=== PATIENT | female | born 1995 | race African-American/Black ===

== ENCOUNTER 2017-04-18 22:33 | Emergency (ER) | payer MEDICAID ==
[~2017-04-18] VITALS: Ht 170.2 cm; Wt 164.0 kg
[2017-04-18] MEDS ORDERED: KETOROLAC 60MG/2ML VIAL IM ONE (23:45)
[2017-04-18 23:55] VITALS: BP 116/77
== END 2017-04-19 00:15 | disposition home or self-care (01) ==
LOC: ER 22:33
DX: M25.561 Pain in right knee (principal); M54.5 Low back pain; W01.0XXA Fall on same level from slipping, tripping and stumbling without subsequent striking against object, initial encounter; Y93.89 Activity, other specified; Y92.241 Library as the place of occurrence of the external cause
CPT/HCPCS: 81025; 96372; 99283; J1885; L1830

== ENCOUNTER 2018-10-25 12:10 | Emergency (ER) | payer MEDICAID ==
[~2018-10-25] VITALS: Ht 165.1 cm; Wt 137.0 kg
[2018-10-25] MEDS ORDERED: IBUPROFEN 600MG TABLET PO ONE (13:15)
[2018-10-25 13:27] VITALS: BP 125/68
== END 2018-10-25 14:01 | disposition home or self-care (01) ==
LOC: ER 12:10
DX: J01.90 Acute sinusitis, unspecified (principal)
CPT/HCPCS: 81025; 99283

== ENCOUNTER 2019-07-02 10:47 | Emergency (ER) | payer MEDICAID ==
[~2019-07-02] VITALS: Ht 170.2 cm; Wt 113.0 kg
[2019-07-02 11:05] VITALS: BP 139/91
[2019-07-02] MEDS ORDERED: KETOROLAC 30MG/ML VIAL IM ONE (12:30)
== END 2019-07-02 13:11 | disposition home or self-care (01) ==
LOC: ER 11:24
DX: L02.413 Cutaneous abscess of right upper limb (principal)
CPT/HCPCS: 96372; 99283; J1885

== ENCOUNTER 2025-03-24 23:59 | Inpatient (IN) | payer MEDICAID, OTHER ==
[~2025-03-24] VITALS: Ht 170.2 cm; Wt 196.0 kg
[2025-03-25 01:06] LABS: BASOPHILS % 1.2 % (0.0-2.0); EOSINOPHILS % 0.8 % (0.0-5.0); HEMATOCRIT. 34.9 % (36.0-48.0); HEMOGLOBIN. 11.5 g/dL (12.0-16.0); LYMPHOCYTES % 34.1 % (20.0-50.0); MEAN PLATELET VOLUME 8.4 fl (7.4-10.4); MONOCYTES % 5.0 % (2.0-8.0); NEUTROPHILS % 58.9 % (40.0-76.0); PLATELET 304 x1000/uL (130-400); RED BLOOD CELL COUNT 4.15 mill/uL (4.2-5.4); RED CELL DISTRIBUTION WIDTH 16.4 % (11.6-14.6)
[2025-03-25 01:20] LABS: CREATININE 0.9 mg/dL (0.6-1.0); TROPONIN I HIGH SENSITIVITY < 4 ng/L (3.0-34); UREA NITROGEN BLOOD 7 mg/dL (9-23)
[2025-03-25 01:21] LABS: ASPARTATE AMINOTRANSFERASE 20 IU/L (<34)
[2025-03-25 01:22] LABS: BILIRUBIN DIRECT 0.1 mg/dL (<=3.0); BILIRUBIN TOTAL 0.4 mg/dL (0.1-1.0); PROTEIN TOTAL 7.8 g/dL (6.0-8.3)
[2025-03-25] MEDS: MORPHINE SULFATE 4 MG/ML INJ (FOR IV/IM USE) IV ONE (01:56)
[2025-03-25] MEDS: ONDANSETRON HCL 4MG/2ML INJ IV ONE (01:56)
[2025-03-25] MEDS: SODIUM CHLORIDE 0.9% 1,000 ML IV ONE (01:57)
[2025-03-25 02:12] LABS: HCG SCREEN NEGATIVE
[2025-03-25] MEDS: IOHEXOL-350 100 ML BOTTLE ONE (05:18)
[2025-03-25] MEDS ORDERED: CLONIDINE 0.1MG TABLET PO PRN (08:30)
[2025-03-25] MEDS ORDERED: MAGNESIUM/ALUMINUM HYDROXIDE/SIMETHICONE 30ML UDC PO PRN (08:30)
[2025-03-25] MEDS ORDERED: GUAIFENESIN 200MG/10ML SUGAR FREE UDC PO PRN (08:30)
[2025-03-25] MEDS ORDERED: ACETAMINOPHEN 325MG TABLET PO PRN (08:30)
[2025-03-25] MEDS ORDERED: DOCUSATE SODIUM 100MG CAPSULE PO PRN (08:30)
[2025-03-25] MEDS ORDERED: ALBU18HF2 IH (08:42)
[2025-03-25] MEDS ORDERED: TOPI-252 PO (08:45)
[2025-03-25 09:01] VITALS: BP 121/66; PULSE 99; RESP 20; TEMP 36.5848
[2025-03-25 09:36] LABS: PHOSPHORUS 2.9 mg/dL (2.5-4.9)
[2025-03-25] MEDS ORDERED: NITROGLYCERIN 0.4MG TABLET SL SL PRN (09:45)
[2025-03-25] MEDS: ONDANSETRON HCL 4MG/2ML INJ IV PRN (11:07)
[2025-03-25] MEDS: ENOXAPARIN 40MG/0.4ML SYR SUBCUT SCH (11:07)
[2025-03-25 12:00] VITALS: BP 125/75; PULSE 71; RESP 20; TEMP 36.7; O2SAT 100
[2025-03-25] MEDS ORDERED: DEXTROSE 50% WATER 50ML SYRINGE IV PRN (12:30)
[2025-03-25] MEDS: INSULIN LISPRO 100 UNITS/ML SUBCUT SCH (12:40)
[2025-03-25 13:31] VITALS: PULSE 73; RESP 18; O2SAT 99
[2025-03-25] MEDS: IPRATROPIUM/ALBUTEROL 0.5-3(2.5)MG/3ML NEB HHN PRN (13:34)
[2025-03-25] MEDS: MAGNESIUM OXIDE 400MG TABLET PO SCH (14:09)
[2025-03-25 16:00] VITALS: BP 120/67; PULSE 74; RESP 20; TEMP 36.6; O2SAT 100
[2025-03-25] MEDS: BLOOD SUGAR DIAGNOSTIC STRIP TEST SCH (16:54)
[2025-03-25] MEDS: FERROUS SULFATE 325MG TABLET PO SCH (16:55)
[2025-03-25] MEDS: ASCORBIC ACID 500 MG TABLET PO SCH (16:55)
[2025-03-25 17:12] LABS: TROPONIN I HIGH SENSITIVITY < 4 ng/L (3.0-34)
[2025-03-25 17:51] LABS: CLARITY URINE CLEAR (CLEAR); COLOR URINE YELLOW (YELLOW); GLUCOSE URINE NEGATIVE (NEGATIVE); KETONES URINE NEGATIVE (NEGATIVE); LEUKOCYTE ESTERASE URINE NEGATIVE (NEGATIVE); NITRITE URINE NEGATIVE (NEGATIVE); OCCULT BLOOD URINE NEGATIVE (NEGATIVE); PH URINE 6.0 (4.5-8.0); PROTEIN URINE NEGATIVE (NEGATIVE); SPECIFIC GRAVITY URINE 1.045 (1.005-1.030); UROBILINOGEN URINE 1.0 E.U./dL (0.2-1.0)
[2025-03-25 18:16] LABS: *AMPHETAMINES SCREEN URINE NEGATIVE (NEGATIVE); *BARBITURATES SCREEN URINE NEGATIVE (NEGATIVE); *BENZODIAZEPINES SCREEN URINE NEGATIVE (NEGATIVE); *COCAINE SCREEN URINE NEGATIVE (NEGATIVE); CANNABINOID URINE SCREEN PRESUMPTIVE POSITIVE (NEGATIVE); ECSTASY MDMA SCREEN URINE NEGATIVE (NEGATIVE); METHADONE URINE SCREEN NEGATIVE (NEGATIVE); OPIATES URINE SCREEN NEGATIVE (NEGATIVE); PHENCYCLIDINE URINE SCREEN NEGATIVE (NEGATIVE)
[2025-03-25] MEDS: ACETAMINOPHEN 325MG TABLET PO PRN (19:22)
[2025-03-25 20:00] VITALS: BP 130/74; PULSE 82; RESP 22; TEMP 36.9; O2SAT 100
[2025-03-25] MEDS: FAMOTIDINE 20MG TABLET PO SCH (21:06)
[2025-03-25 23:33] LABS: TROPONIN I HIGH SENSITIVITY < 4 ng/L (3.0-34)
[2025-03-26] VITALS: BP 124/68; PULSE 76; RESP 20; TEMP 36.4; O2SAT 100
[2025-03-26 04:00] VITALS: BP 120/70; PULSE 80; RESP 18; TEMP 36.3; O2SAT 100
[2025-03-26 06:56] LABS: BASOPHILS % 0.7 % (0.0-2.0); EOSINOPHILS % 1.4 % (0.0-5.0); HEMATOCRIT. 35.2 % (36.0-48.0); HEMOGLOBIN. 11.6 g/dL (12.0-16.0); LYMPHOCYTES % 42.0 % (20.0-50.0); MEAN PLATELET VOLUME 8.8 fl (7.4-10.4); MONOCYTES % 6.2 % (2.0-8.0); NEUTROPHILS % 49.7 % (40.0-76.0); PLATELET 288 x1000/uL (130-400); RED BLOOD CELL COUNT 4.17 mill/uL (4.2-5.4); RED CELL DISTRIBUTION WIDTH 15.8 % (11.6-14.6)
[2025-03-26 07:34] LABS: CREATININE 0.8 mg/dL (0.6-1.0); T4 FREE 1.18 ng/dL (0.89-1.76); TRIGLYCERIDE 95 mg/dL (0-150); UREA NITROGEN BLOOD < 5 mg/dL (9-23)
[2025-03-26 07:35] LABS: LDL CHOLESTEROL 108 mg/dL (5-100)
[2025-03-26 08:00] VITALS: BP 152/81; PULSE 70; RESP 19; TEMP 36.7; O2SAT 97
[2025-03-26 12:00] VITALS: BP 134/80; PULSE 74; RESP 18; TEMP 36.6; O2SAT 97
[2025-03-26] MEDS ORDERED: METF-414 MT ×2 (14:48→16:04)
[2025-03-26] MEDS ORDERED: ALBU2.5V13 NEB ×2 (14:51→16:04)
[2025-03-26 15:21] VITALS: BP 134/80; PULSE 74; RESP 18; TEMP 97.8
== END 2025-03-26 15:54 | disposition home or self-care (01) | DRG 206 ==
LOC: ER 23:59 → EDBEDREQ 03-25 05:54 → EDBEDREQTM 03-25 05:54 → ENRESERV 03-25 07:57 → 8WST 03-25 08:20
PROVIDERS: ADMIT Internal Medicine; ATTEND Internal Medicine
DX: M94.0 Chondrocostal junction syndrome [Tietze] (principal); Z68.44 Body mass index [BMI] 60.0-69.9, adult; E66.813 Obesity, class 3; D64.9 Anemia, unspecified; J45.909 Unspecified asthma, uncomplicated; F17.210 Nicotine dependence, cigarettes, uncomplicated; F41.9 Anxiety disorder, unspecified; G89.29 Other chronic pain; E11.9 Type 2 diabetes mellitus without complications; Z88.6 Allergy status to analgesic agent; Z82.49 Family history of ischemic heart disease and other diseases of the circulatory system
CPT/HCPCS: 36415; 71045; 71275; 74176; 76830; 76856; 80048; 80061; 80076; 80305; 81003; 82728; 82962; 83036; 83540; 83550; 83735; 83880; 84100; 84439; 84443; 84484; 84703; 85025; 93005; 94070; 94640; 94664; 96360; 96361; 96375; 98960; 99285; J1650; J2270; J2405; J7030; Q9967